=== PATIENT | male | born 1955 | race Caucasian/White ===

== ENCOUNTER 2016-12-06 12:07 | Outpatient (CLI) ==
[2016-12-06 12:37] VITALS: BP 86/58; TEMP 95
[2016-12-06] MEDS: SODIUM CHLORIDE 1,000 ML IV SCH (12:39)
== END 2016-12-06 15:10 | disposition home or self-care (01) ==
LOC: OPMED 12:07
PROVIDERS: ATTEND Internal Medicine Hematology & Oncology
DX: C25.0 Malignant neoplasm of head of pancreas (principal); R10.13 Epigastric pain
CPT/HCPCS: 96361

== ENCOUNTER 2016-12-07 16:35 | Outpatient (CLI) ==
[2016-12-07] MEDS: SODIUM CHLORIDE 1,000 ML IV SCH (16:45)
== END 2016-12-07 16:36 | disposition home or self-care (01) ==
LOC: OPMED 16:35
PROVIDERS: ATTEND Internal Medicine Hematology & Oncology
DX: C25.0 Malignant neoplasm of head of pancreas (principal); R10.13 Epigastric pain
CPT/HCPCS: 96360; 96361; 96375

== ENCOUNTER 2016-12-20 11:40 | Outpatient (CLI) ==
[2016-12-20] MEDS ORDERED: SODIUM CHLORIDE 0.9%-KCL 20 MEQ 1,000 ML IV STA (12:00)
[2016-12-20 12:17] VITALS: BP 92/58; TEMP 98.2
== END 2016-12-20 11:41 | disposition home or self-care (01) ==
LOC: OPMED 11:40
PROVIDERS: ATTEND Internal Medicine Hematology & Oncology
DX: C25.0 Malignant neoplasm of head of pancreas (principal)
CPT/HCPCS: 96360; 96361

== ENCOUNTER 2016-12-27 12:51 | Outpatient (CLI) ==
[2016-12-27] MEDS ORDERED: SODIUM CHLORIDE 0.9%-KCL 20 MEQ 1,000 ML IV STA (13:05)
[2016-12-27 13:06] VITALS: BP 116/72
== END 2016-12-27 12:52 | disposition home or self-care (01) ==
LOC: OPMED 12:51
PROVIDERS: ATTEND Internal Medicine Hematology & Oncology
DX: C25.0 Malignant neoplasm of head of pancreas (principal)
CPT/HCPCS: 96361

== ENCOUNTER 2017-01-03 15:05 | Outpatient (CLI) ==
[2017-01-03] MEDS ORDERED: SODIUM CHLORIDE 0.9%-KCL 20 MEQ 1,000 ML IV STA (15:18)
[2017-01-03 15:34] VITALS: BP 130/75; TEMP 97.5
== END 2017-01-03 15:06 | disposition home or self-care (01) ==
LOC: OPMED 15:05
PROVIDERS: ATTEND Internal Medicine Hematology & Oncology
DX: C25.0 Malignant neoplasm of head of pancreas (principal); E86.0 Dehydration
CPT/HCPCS: 96360; 96361